=== PATIENT | female | born 1945 | race Caucasian/White ===

== ENCOUNTER 2017-06-11 23:12 | Emergency (ER) | payer MEDICARE, OTHER ==
[~2017-06-11] VITALS: Wt 68.0 kg
[~2017-06-11 23:12] MED LIST: ALPRAZOLAM 0.0.25 MG PO; AMARYL2 MG PO; AMARYL4 MG PO; AMOXICILLIN 50500 MG PO; CALAN120 MG PO; CARAFATE 11 GM/10 M1 GT; CEFAZOLIN-2 GM/1002 IV; FLOXIN OTI0.3 %/5 M1 OT; GLUCOPHAGE XR500 MG PO; GLUMETZA500 PO; JANUVIA25 MG PO; LIPITOR20 MG PO; LISINOPRIL10 MG; LISINOPRIL10 MG PO; LISINOPRIL20 MG PO; LOPRESSOR25 OR; MINIPRIN81 MG PO; MINOCIN100 MG PO; NITROSTAT0.4 MG SL; NOLVADEX20 MG PO; ONGLYZA2.5 MG PO; PERCOCET PO; PLAVIX 75 MG TA75 MG OR; PRILOSEC 20 MG20 MG PO; PROTONIX40 M2 PO; SORINE 80 MG TA80 M1 PO; VITAMIN D31000 UNI2 PO; XARELTO20 MG PO; ZOCOR40 MG OR
[2017-06-11 23:24] VITALS: BP 00/00
== END 2017-06-11 23:24 ==
LOC: M.ERS 23:12
DX: I46.9 Cardiac arrest, cause unspecified (principal); I10 Essential (primary) hypertension; E11.9 Type 2 diabetes mellitus without complications; K22.70 Barrett's esophagus without dysplasia; Z90.49 Acquired absence of other specified parts of digestive tract; Z90.710 Acquired absence of both cervix and uterus; Z90.89 Acquired absence of other organs; Z88.8 Allergy status to other drugs, medicaments and biological substances; Z91.041 Radiographic dye allergy status; Z88.5 Allergy status to narcotic agent; Z87.891 Personal history of nicotine dependence